=== PATIENT | female | born 1980 | race Caucasian/White ===

== ENCOUNTER → 2020-11-06 | Outpatient (CLI) | payer OTHER ==
[~2020-11-06] MED LIST: ENBREL50 MG/1 ML SQ; HEMP OIL SL; INDOCIN CAP 2525 MG PO; LATUDA40 MG PO; LYRICA75 MG PO; PERCOCET 5/325 T1 EA PO; PERCOCET 7.5-31 EACH PO; SINGULAIR10 MG PO; TIZANIDINE HCL4 MG PO; VITAMIN D21250 MCG PO; ZYRTEC10 M3 PO; [UNRECOGNIZED DRUG - OTHER]
== END ==
LOC: CT 14:15
DX: R22.1 Localized swelling, mass and lump, neck (principal)
CPT/HCPCS: 70492; Q9967

== ENCOUNTER → 2021-01-21 | Outpatient (CLI) | payer OTHER | LOC: SLEEP 13:04 | DX: G47.30 Sleep apnea, unspecified (principal) | CPT/HCPCS: 95810 ==

== ENCOUNTER → 2021-03-20 | Outpatient (CLI) | payer OTHER ==
[2021-03-20 11:54] LABS: RED BLOOD COUNT 4.36 M/UL (4.00-5.10); WHITE BLOOD COUNT 4.7 K/UL (4.5-11.0)
[2021-03-20 12:08] LABS: BUN/CREATININE RATIO 21 (0-10)
== END ==
LOC: OPSV2 09:30
PROVIDERS: Orthopaedic Surgery
DX: Z01.812 Encounter for preprocedural laboratory examination (principal); M53.3 Sacrococcygeal disorders, not elsewhere classified
CPT/HCPCS: 80048; 85025; 87081

== ENCOUNTER 2021-04-03 06:22 | Day surgery (SDC) | payer OTHER ==
[~2021-04-03] VITALS: Ht 175.3 cm; Wt 85.7 kg
[~2021-04-03 06:22] MED LIST changes: -ENBREL50 MG/1 ML SQ; -PERCOCET 7.5-31 EACH PO
[2021-04-03] MEDS ORDERED: ENBREL50 MG/1 ML SQ (06:52)
[2021-04-03] MEDS ORDERED: PERCOCET 7.5-31 EACH PO (10:07)
--- NOTE | 2021-04-04 09:37 | NUR ---
PT BP RECHECK WAS 107/70. NOTIFIED
--- NOTE | 2021-04-04 10:19 | NUR ---
INSTRUCTED PATIENT KEEP FOLLOW UP APPOINTMNT. MEDS AT PHARMACY FOR PAIN. VERBALIZED UNDERSTANDING. CHONG ANDRES R.N.
== END 2021-04-04 14:24 | disposition home or self-care (01) ==
LOC: OR 06:22 → M/S 13:12 → OR 13:20
PROVIDERS: Orthopaedic Surgery
PROC: 0SG80JZ Fusion of Left Sacroiliac Joint with Synthetic Substitute, Open Approach (ICD-10-PCS; principal; 2021-04-03 07:45)
DX: M53.3 Sacrococcygeal disorders, not elsewhere classified (principal); G89.29 Other chronic pain; M06.9 Rheumatoid arthritis, unspecified; M32.9 Systemic lupus erythematosus, unspecified; M79.7 Fibromyalgia; J45.909 Unspecified asthma, uncomplicated; K21.9 Gastro-esophageal reflux disease without esophagitis; K44.9 Diaphragmatic hernia without obstruction or gangrene; G62.9 Polyneuropathy, unspecified; E07.9 Disorder of thyroid, unspecified; I73.00 Raynaud's syndrome without gangrene; Z20.822 Contact with and (suspected) exposure to COVID-19; Z88.0 Allergy status to penicillin; Z88.1 Allergy status to other antibiotic agents; Z91.040 Latex allergy status; Z79.899 Other long term (current) drug therapy; Z91.030 Bee allergy status; Z91.018 Allergy to other foods
CPT/HCPCS: 71045; 72202; 76000; 97116-GP-CQ; 97161; 97530-GP-CQ; C1776; J0171; J0735; J1100; J1170; J1885; J2001; J2250; J2274; J2405; J2704; J2710; J2795; J3010; J7120

== ENCOUNTER → 2021-06-10 | Outpatient (CLI) | payer OTHER ==
[~2021-06-10] MED LIST changes: +ENBREL50 MG/1 ML SQ; +PERCOCET 7.5-31 EACH PO
== END ==
LOC: KOH-I 09:56
DX: M79.671 Pain in right foot (principal); M79.672 Pain in left foot; R93.6 Abnormal findings on diagnostic imaging of limbs; Z96.698 Presence of other orthopedic joint implants
CPT/HCPCS: 73630

== ENCOUNTER → 2021-08-05 | Outpatient (CLI) | payer OTHER | LOC: HEART 5 08:36 | DX: R00.2 Palpitations (principal) ==

== ENCOUNTER → 2022-01-16 | Outpatient (CLI) | payer OTHER | LOC: HEART 5 01-13 08:45 | DX: R07.9 Chest pain, unspecified (principal) | CPT/HCPCS: 78452; A9502 ==

== ENCOUNTER → 2022-05-15 | Outpatient (CLI) | payer OTHER | LOC: KOH-I 09:04 | DX: M79.671 Pain in right foot (principal); Z96.698 Presence of other orthopedic joint implants | CPT/HCPCS: 73630 ==

== ENCOUNTER → 2022-07-22 | Outpatient (CLI) | payer OTHER | LOC: HEART 5 13:08 | DX: R00.2 Palpitations (principal); R06.02 Shortness of breath; R00.0 Tachycardia, unspecified; R42 Dizziness and giddiness | CPT/HCPCS: 93306 ==